=== PATIENT | male | born 1980 | race Caucasian/White ===

== ENCOUNTER 2018-06-18 01:40 | Emergency (ER) | payer MEDICAID ==
--- NOTE | 2018-06-18 02:49 | EDPHY ---
H & P Stated Complaint: ETOH Time Seen by Provider: 06/18/18 02:34 HPI/ROS: HPI The patient presents with alcohol intoxication, brought in by ambulance from [place] where he had had too much alcohol to drink and was stumbling. Bystanders were concerned so they called 911. The patient did stumble and fall backwards landing on his bottom. He did not hit his head. He does not have any complaints currently.. He does believe he vomited though is not having any nausea currently. REVIEW OF SYSTEMS 10 systems were reviewed and negative with the exception of the elements mentioned in the history of present illness. PMHx: Healthy Soc Hx: Alcohol use, tobacco use PHYSICAL General Appearance: Obviously intoxicated Eyes: Pupils equal and round no pallor or injection ENT, Mouth: Mucous membranes moist Respiratory: There are no retractions, lungs are clear to auscultation Cardiovascular: Regular rate and rhythm Gastrointestinal: Abdomen is soft and non-tender, no masses, bowel sounds normal Neurological: A&O, moves all extremities Skin: Warm and dry, no rashes Musculoskeletal: Neck is supple non tender Extremities: symmetrical, full range of motion Psychiatric: Patient is oriented X 3, there is no agitation Source: Patient, EMS Exam Limitations: Intoxication - Personal History Current Tetanus/Diphtheria Vaccine: Unsure Current Tetanus Diphtheria and Acellular Pertussis (TDAP): Unsure - Medical/Surgical History Hx Asthma: No Hx Chronic Respiratory Disease: No Hx Diabetes: No Hx Cardiac Disease: No Hx Renal Disease: No Hx Cirrhosis: No Hx Alcoholism: No Hx HIV/AIDS: No Hx Splenectomy or Spleen Trauma: No Other PMH: DENIES - Social History Smoking Status: Current some day smoker Constitutional: Initial Vital Signs Temperature (C) 36.3 C 06/18/18 01:40 Heart Rate 93 06/18/18 01:40 Respiratory Rate 18 06/18/18 01:40 Blood Pressure 135/92 H 06/18/18 01:40 O2 Sat (%) 95 06/18/18 01:40 O2 Delivery Mode Room Air Allergies/Adverse Reactions: No Known Allergies Allergy (Unverified 06/18/18 01:58) Home Medications: Medication Instructions Recorded NK [No Known Home Meds] 02/05/15 Medical Decision Making Differential Diagnosis: 38-year-old male presents with alcohol intoxication, ataxic gait with fall backwards at a restaurant. He is brought in by ambulance. He does not have any complaints currently though is intoxicated and unable to walk due to this. We will monitor him here. Departure - Departure Disposition: Home, Routine, Self-Care Clinical Impression: Alcoholic intoxication Qualifiers: Complication of substance-induced condition: with delirium Qualified Code(s): F10.921 - Alcohol use, unspecified with intoxication delirium Condition: Good Instructions: At-Risk Alcohol Use (ED) Referrals: [facility] [Outside] - As per Instructions
[2018-06-18 05:07] VITALS: BP 110/75
== END 2018-06-18 07:07 | disposition home or self-care (01) ==
LOC: EDUNIT#
DX: F10.921 Alcohol use, unspecified with intoxication delirium (principal); F17.200 Nicotine dependence, unspecified, uncomplicated